=== PATIENT | female | born 1980 | race African-American/Black ===

== ENCOUNTER 2021-05-22 06:15 | Inpatient (IN) | payer OTHER ==
[2021-05-22] MEDS: DEXTROSE 5%-LACTATED RINGERS 1,000 ML IV SCH (07:00)
[2021-05-22] MEDS ORDERED: CITRIC ACID/SODIUM CITRATE 30 ML UNIT-DOSE CUP PO ONE (08:05)
[2021-05-22] MEDS ORDERED: ceFAZolin SODIUM 1 GM VIAL ONE (08:31)
[2021-05-22] MEDS ORDERED: TRIAMCINOLONE ACETONIDE 40 MG/ML 10 ML VIAL SQ ONE (08:32)
[2021-05-22] MEDS ORDERED: ONDANSETRON 4 MG/2 ML VIAL ONE (08:37)
[2021-05-22] MEDS ORDERED: OXYTOCIN 10 UNIT/ML 10ML MDV ONE (08:46)
[2021-05-22 10:18] LABS: CORD HCO3 23.4 mmHg (20-29); CORD PCO2 77.6 mmHg (30-78); CORD pH 7.098 (7.14-7.44)
[2021-05-22 10:19] LABS: CORD BASE EXCESS -6.9 mmol/L (0-2); CORD HCO3 22.1 mmHg (20-29); CORD PCO2 57.7 mmHg (30-78); CORD pH 7.201 (7.14-7.44)
[2021-05-22 12:12] VITALS: BMI 41.5
[2021-05-22] MEDS ORDERED: METHYLERGONOVINE MALEATE 0.2 MG/1 ML AMP IM PRN (13:25)
[2021-05-23] MEDS: SIMETHICONE 80 MG TAB.CHEW (FP) PO PRN ×3 (04:43→19:48)
[2021-05-23] MEDS: IBUPROFEN 600 MG TABLET (FP) PO PRN ×2 (04:43→22:00)
[2021-05-23] MEDS ORDERED: INSULIN SLIDING SCALE (NOVOLOG) 1 VIAL SQ ONE ×4 (08:43→20:35)
[2021-05-23] MEDS ORDERED: INSULIN (NOVOLOG) ASPART 100 UNITS/ML 10ML VIAL SQ ONE ×4 (08:45→20:20)
[2021-05-23 08:51] LABS: BASO % 0.3 % (0-2.0); EOS % 0.1 % (0-4.5); HEMATOCRIT 31.6 % (32.4-45.2); HEMOGLOBIN 10.6 GM/dL (10.7-15.3); MCH 29.4 pg (25.7-33.7); MCHC 33.5 g/dl (32.0-36.0); MEAN CELL VOLUME 87.8 fl (80-96); MEAN PLT VOLUME 8.9 fl (7.5-11.1); MONO % 9.5 % (3.8-10.2); NEUT % 73.1 % (42.8-82.8); PLATELET COUNT 256 10^3/uL (134-434); RDW 14.8 % (11.6-15.6); WHITE BLOOD COUNT 11.9 K/mm3 (4.0-10.0)
[2021-05-23] MEDS ORDERED: FLU VACC QS2021-22(6MOS UP)/PF 60 MCG/0.5 ML SYRINGE IM ONE (09:30)
[2021-05-23] MEDS ORDERED: diphenhydrAMINE HCL 25 MG CAPSULE (FP) PO ONE (10:45)
[2021-05-23] MEDS ORDERED: BISACODYL 10 MG SUPP.RECT RC PRN (13:25)
[2021-05-23] MEDS: oxyCODONE HCL 5 MG TABLET PO PRN ×2 (14:02→19:48)
[2021-05-23] MEDS ORDERED: INSULIN (LEVEMIR) 100 UNITS/ML UNITS SQ ONE ×3 (14:14→18:55)
[2021-05-23] MEDS ORDERED: INSULIN (LEVEMIR) 100 UNITS/ML UNITS SQ SCH (22:00)
[2021-05-23] MEDS: INSULIN (LEVEMIR) 100 UNITS/ML UNITS SQ SCH (22:01)
[2021-05-24] MEDS: IBUPROFEN 600 MG TABLET (FP) PO PRN ×4 (04:42→17:40)
[2021-05-24] MEDS: SIMETHICONE 80 MG TAB.CHEW (FP) PO PRN ×5 (04:43→22:33)
[2021-05-24] MEDS: INSULIN (LEVEMIR) 100 UNITS/ML UNITS SQ SCH ×2 (08:47→22:18)
[2021-05-24] MEDS: DEXTROSE 5%-LACTATED RINGERS 1,000 ML IV SCH (08:53)
[2021-05-24] MEDS ORDERED: INSULIN SLIDING SCALE (NOVOLOG) 1 VIAL SQ ONE ×2 (15:23→17:35)
[2021-05-24] MEDS: INSULIN (NOVOLOG) ASPART 100 UNITS/ML 10ML VIAL SQ SCH ×2 (15:31→17:40)
[2021-05-24] MEDS: oxyCODONE HCL 5 MG TABLET PO PRN (22:32)
[2021-05-25 08:44] LABS: BASO % 0.5 % (0-2.0); EOS % 2.8 % (0-4.5); HEMATOCRIT 34.7 % (32.4-45.2); HEMOGLOBIN 11.7 GM/dL (10.7-15.3); LYMPH % 25.2 % (8-40); MCH 29.5 pg (25.7-33.7); MCHC 33.6 g/dl (32.0-36.0); MEAN CELL VOLUME 87.9 fl (80-96); NEUT % 64.5 % (42.8-82.8); PLATELET COUNT 360 10^3/uL (134-434); RBC 3.95 M/mm3 (3.60-5.2); RDW 14.7 % (11.6-15.6); WHITE BLOOD COUNT 12.6 K/mm3 (4.0-10.0)
[2021-05-25] MEDS: SIMETHICONE 80 MG TAB.CHEW (FP) PO PRN ×2 (08:56→18:13)
[2021-05-25] MEDS: INSULIN (LEVEMIR) 100 UNITS/ML UNITS SQ SCH ×2 (08:57→21:13)
[2021-05-25] MEDS: oxyCODONE HCL 5 MG TABLET PO PRN (08:57)
[2021-05-25] MEDS ORDERED: INSULIN SLIDING SCALE (NOVOLOG) 1 VIAL SQ ONE ×2 (11:04→18:15)
[2021-05-25] MEDS: INSULIN (NOVOLOG) ASPART 100 UNITS/ML 10ML VIAL SQ SCH ×2 (11:09→18:19)
[2021-05-25] MEDS: IBUPROFEN 600 MG TABLET (FP) PO PRN ×2 (12:33→18:13)
[2021-05-26] MEDS: IBUPROFEN 600 MG TABLET (FP) PO PRN ×3 (05:58→17:16)
[2021-05-26] MEDS: INSULIN (LEVEMIR) 100 UNITS/ML UNITS SQ SCH (06:29)
[2021-05-26] MEDS ORDERED: INSULIN SLIDING SCALE (NOVOLOG) 1 VIAL SQ ONE ×2 (08:16→12:38)
[2021-05-26] MEDS: INSULIN (NOVOLOG) ASPART 100 UNITS/ML 10ML VIAL SQ SCH ×3 (08:52→18:13)
[2021-05-26 10:22] VITALS: BP 99/67; PULSE 86; TEMP 98.4
[2021-05-26] MEDS: SIMETHICONE 80 MG TAB.CHEW (FP) PO PRN ×2 (12:55→17:16)
== END 2021-05-26 19:45 | disposition home or self-care (01) | DRG 540 ==
LOC: JLDR 06:15 → J3W 12:20
PROVIDERS: ADMIT Obstetrics & Gynecology Maternal & Fetal Medicine; ATTEND Obstetrics & Gynecology Maternal & Fetal Medicine
PROC: 10D00Z1 Extraction of Products of Conception, Low, Open Approach (ICD-10-PCS; principal; 2021-05-22)
DX: O34.29 Maternal care due to uterine scar from other previous surgery (principal); O24.12 Pre-existing type 2 diabetes mellitus, in childbirth; Z79.4 Long term (current) use of insulin; Z3A.37 37 weeks gestation of pregnancy; Z37.0 Single live birth
CPT/HCPCS: 36415; 36600; 59025; 82803; 82947; 82962; 85025; 88304-TC; 88307-TC; 90686; G0008